=== PATIENT | female | born 1985 | race African-American/Black ===

== ENCOUNTER 2017-07-04 11:15 | Emergency (ER) | payer OTHER, SELFPAY ==
[2017-07-04] MEDS ORDERED: Ondansetron ODT 4 MG TAB ONE (11:37)
== END 2017-07-04 12:01 | disposition home or self-care (01) ==
LOC: BURERS 11:15
DX: K52.9 Noninfective gastroenteritis and colitis, unspecified (principal)
CPT/HCPCS: 96372; Q0162

== ENCOUNTER 2017-07-21 13:20 | Emergency (ER) | payer OTHER ==
[2017-07-21] MEDS ORDERED: Ketorolac Tromethamine 60 MG/2 ML VIAL ONE (13:35)
== END 2017-07-21 13:55 | disposition home or self-care (01) ==
LOC: BURERS 13:20
DX: J20.9 Acute bronchitis, unspecified (principal)
CPT/HCPCS: 96372; J1885

== ENCOUNTER 2017-08-07 13:18 | Emergency (ER) | payer OTHER ==
[2017-08-07 14:00] LABS: Hemoglobin 7.7 g/dL (12.0-16.0); Mean Corpuscular HGB CONC 28.3 g/dL (32.0-36.0); Mean Corpuscular Hemoglobin 18.6 pg (27.0-31.0); Mean Corpuscular Volume 65.8 fl (81.0-99.0); Mean Platelet Volume 7.4 fL (7.4-10.4); Platelet Count 316 thou/uL (130-400); RBC Distribution Width 18.1 % (11.5-14.5); Red Blood Cell (RBC) Count 4.12 mill/uL (4.20-5.40); White Blood Cell (WBC) Count 6.9 thou/uL (4.8-10.8)
[2017-08-07 14:08] LABS: BHCG - Serum Negative (NEGATIVE); Pregs Control Background? CLEAR/WHITE (CLR/WHITE); Pregs Control Bar Appear? YES (CONTROL BAR)
[2017-08-07 14:17] LABS: #Basophils 0.1 thou/uL (0.0-0.2); #Eosinphils 0.5 thou/uL (0.0-0.7); #Lymphocytes 2.5 thou/uL (1.20-3.40); #Monocytes 0.6 thou/uL (0.11-0.59); #Neutrophils 3.2 thou/uL (1.40-6.50); %Basophils 0.8 % (0.0-1.0); %Eosinophils 7.6 % (0.0-10.0); %Lymphocytes 35.7 % (21.0-51.0); %Monocytes 9.3 % (0.0-10.0); %Neutrophils 46.5 % (42.0-75.0); Basophilic Stippling SLIGHT = 1-2 cells (100X) (None Seen); Hypochromia MODERATE=16-30 cells (100X) (0-5/hpf); MDiff Complete? YES; Macrocytosis SLIGHT = 6-15 cells (100X) (0-5/hpf); Microcytosis MODERATE=15-30 cells (100X) (0-5/hpf); Polychromasia SLIGHT = 2-3 cells (100X) (0-2/hpf)
== END 2017-08-07 16:35 | disposition short-term general hospital (02) ==
LOC: BURERS 13:18
DX: N93.8 Other specified abnormal uterine and vaginal bleeding (principal); D64.9 Anemia, unspecified
CPT/HCPCS: 36415; 84703; 85025; 99284

== ENCOUNTER 2019-08-24 23:32 | Emergency (ER) | payer OTHER | END 2019-08-25 00:14 | disposition home or self-care (01) | LOC: BURERS 23:32 | DX: S06.0X0A Concussion without loss of consciousness, initial encounter (principal); S01.511A Laceration without foreign body of lip, initial encounter; Y04.2XXA Assault by strike against or bumped into by another person, initial encounter; Y92.219 Unspecified school as the place of occurrence of the external cause; Y99.0 Civilian activity done for income or pay | CPT/HCPCS: 99283 ==

== ENCOUNTER 2020-05-26 16:39 | Emergency (ER) | payer OTHER ==
[2020-05-26 17:43] LABS: #Basophils 0.1 thou/uL (0.0-0.2); #Eosinphils 0.2 thou/uL (0.0-0.7); #Lymphocytes 2.8 thou/uL (1.20-3.40); #Monocytes 0.6 thou/uL (0.11-0.59); #Neutrophils 2.3 thou/uL (1.40-6.50); %Basophils 0.9 % (0.0-1.0); %Eosinophils 3.2 % (0.0-10.0); %Monocytes 9.7 % (0.0-10.0); %Neutrophils 39.2 % (42.0-75.0); Hemoglobin 12.7 g/dL (12.0-16.0); Mean Corpuscular HGB CONC 30.8 g/dL (32.0-36.0); Mean Corpuscular Hemoglobin 26.9 pg (27.0-31.0); Mean Corpuscular Volume 87.1 fL (78.0-98.0); Mean Platelet Volume 9.8 fL (7.4-10.4); Platelet Count 258 thou/uL (130-400); RBC Distribution Width 12.6 % (11.5-14.5); Red Blood Cell (RBC) Count 4.71 mill/uL (4.20-5.40); White Blood Cell (WBC) Count 5.9 thou/uL (4.8-10.8)
[2020-05-26 17:50] LABS: Bilirubin Negative (Negative); Blood, Urine Negative (Negative); Clarity Cloudy (Clear); Glucose, Urine (Dipstick) Negative (Negative); Ketone, Urine Negative (Negative); Leukocyte Negative (Negative); Nitrite Negative (Negative); Protein, Urine (Dipstick) Negative (Neg-Trace); Specific Gravity, Urine 1.025 (1.005-1.030); pH, Urine 7.5 (5.0-9.0)
[2020-05-26 18:00] LABS: ALT (SGPT) 17 U/L (8-55); AST (SGOT) 12 U/L (5-34); Albumin 4.2 g/dL (3.5-5.0); Alkaline Phosphatase 111 U/L (40-110); Anion Gap 16 mmol/L (10-20); BUN (Urea Nitrogen) 7 mg/dL (7.0-18.7); Bilirubin, Total 0.3 mg/dL (0.2-1.2); Calc. Creatinine Clearance 0 mL/min (70-130); Calcium 9.6 mg/dL (7.8-10.44); Carbon Dioxide 25 mmol/L (22-29); Chloride 106 mmol/L (98-107); Globulin 4.1 g/dL (2.4-3.5); Glucose 116 mg/dL (70-105); Lipase 10 U/L (8-78); Potassium 3.9 mmol/L (3.5-5.1); Protein, Total 8.3 g/dL (6.0-8.3); Sodium 143 mmol/L (136-145)
--- NOTE | 2020-05-26 18:27 | RAD ---
PORTABLE CHEST: Date: 05-26-2020 An AP portable film at 1754 is compared with a 07-11-14 study. FINDINGS: The heart is normal in size and the lungs are clear. There is no acute infiltrate or effusion. The me diastinum appears normal and the trachea is midline. IMPRESSION: No acute thoracic finding. POS: HOME
== END 2020-05-26 18:32 | disposition home or self-care (01) ==
LOC: BURERS 16:39
DX: K80.20 Calculus of gallbladder without cholecystitis without obstruction (principal); M54.5 Low back pain
CPT/HCPCS: 36415; 71045; 80053; 81003; 83690; 84484; 85025; 93005

== ENCOUNTER 2020-08-05 12:12 | Emergency (ER) | payer OTHER ==
[2020-08-05] MEDS ORDERED: Metoclopramide HCl 10 MG/2 ML VIAL ONE (13:27)
[2020-08-05] MEDS ORDERED: methylPREDNISolone Sod Succ/PF 125 MG/2 ML VIAL ONE (13:28)
[2020-08-05] MEDS ORDERED: diphenhydrAMINE 50 MG/ML VIAL ONE (13:28)
[2020-08-05 13:44] LABS: #Eosinphils 0.2 thou/uL (0.0-0.7); #Lymphocytes 1.3 thou/uL (1.20-3.40); #Monocytes 0.5 thou/uL (0.11-0.59); #Neutrophils 2.4 thou/uL (1.40-6.50); %Eosinophils 4.9 % (0.0-10.0); %Lymphocytes 29.4 % (21.0-51.0); %Monocytes 11.6 % (0.0-10.0); %Neutrophils 53.1 % (42.0-75.0); Mean Corpuscular Volume 87.2 fL (78.0-98.0); Platelet Count 236 thou/uL (130-400); RBC Distribution Width 12.9 % (11.5-14.5); Red Blood Cell (RBC) Count 4.82 mill/uL (4.20-5.40); White Blood Cell (WBC) Count 4.6 thou/uL (4.8-10.8)
[2020-08-05] MEDS ORDERED: Morphine 10 MG/ML VIAL ONE (13:58)
[2020-08-05 13:59] LABS: ALT (SGPT) 21 U/L (8-55); AST (SGOT) 18 U/L (5-34); Albumin 4.3 g/dL (3.5-5.0); Alkaline Phosphatase 99 U/L (40-110); Anion Gap 13 mmol/L (10-20); BUN (Urea Nitrogen) 8 mg/dL (7.0-18.7); Bilirubin, Total 0.5 mg/dL (0.2-1.2); Calc. Creatinine Clearance 0 mL/min (70-130); Calcium 9.6 mg/dL (7.8-10.44); Carbon Dioxide 27 mmol/L (22-29); Chloride 107 mmol/L (98-107); Glucose 90 mg/dL (70-105); Potassium 3.7 mmol/L (3.5-5.1); Protein, Total 8.3 g/dL (6.0-8.3); Sodium 143 mmol/L (136-145)
[2020-08-05 14:00] LABS: BHCG - Serum Negative (NEGATIVE); Pregs Control Background? CLEAR/WHITE (CLR/WHITE); Pregs Control Bar Appear? YES (CONTROL BAR)
--- NOTE | 2020-08-05 16:01 | CT ---
CT OF THE BRAIN WITHOUT CONTRAST: 08/05/[address] was done for evaluation of headache. The ventricles are normal in size with no shift . No intracranial bleeding, mass or edema was found. There is no sign of acute stroke. The skull is n ormal in appearance. There is a trace of mucosal thickening in the left maxillary sinus. IMPRESSION: No acute intracranial findings. Preliminary report called to Kaylynn in ER at 1527 on 08/05/20. POS: HOME
--- NOTE | 2020-08-05 16:19 | RAD ---
PORTABLE CHEST: 08/05/20 An AP portable film at 1346 is compared with an 05/26/20 study. The heart remains normal in size and the lungs are clear. No acute infiltrate or effusion was seen. There is no vascular congestion or padmini ma. IMPRESSION: No acute thoracic finding. POS: HOME
[2020-08-06 07:46] LABS: SARS-CoV-2 PCR by NAA Not Detected (NotDetected)
== END 2020-08-05 16:03 | disposition home or self-care (01) ==
LOC: BURERS 12:12
DX: R05 Cough (principal); R51.9 Headache, unspecified; R09.81 Nasal congestion; Z20.822 Contact with and (suspected) exposure to COVID-19; I10 Essential (primary) hypertension
CPT/HCPCS: 36415; 70450; 71045; 80053; 84703; 85025; 87635; 96374; 96375; J1200; J2270; J2765; J2930; U0003; U0005

== ENCOUNTER 2021-04-24 13:17 | Emergency (ER) | payer SELFPAY ==
[2021-04-24] MEDS ORDERED: cloNIDine 0.1 MG TAB ONE (14:16)
[2021-04-24 14:18] LABS: #Eosinphils 0.1 thou/uL (0.0-0.7); #Lymphocytes 1.7 thou/uL (1.20-3.40); #Monocytes 0.4 thou/uL (0.11-0.59); #Neutrophils 2.3 thou/uL (1.40-6.50); %Basophils 0.7 % (0.0-1.0); %Eosinophils 1.7 % (0.0-10.0); %Lymphocytes 37.3 % (21.0-51.0); %Monocytes 8.9 % (0.0-10.0); %Neutrophils 51.4 % (42.0-75.0); Hemoglobin 12.8 g/dL (12.0-16.0); Mean Corpuscular HGB CONC 30.9 g/dL (32.0-36.0); Mean Corpuscular Hemoglobin 27.2 pg (27.0-31.0); Mean Corpuscular Volume 87.9 fL (78.0-98.0); Platelet Count 298 thou/uL (130-400); RBC Distribution Width 12.7 % (11.5-14.5); White Blood Cell (WBC) Count 4.5 thou/uL (4.8-10.8)
[2021-04-24 14:35] LABS: ALT (SGPT) 12 U/L (8-55); AST (SGOT) 14 U/L (5-34); Albumin 4.3 g/dL (3.5-5.0); Alkaline Phosphatase 113 U/L (40-110); Anion Gap 15 mmol/L (10-20); BUN (Urea Nitrogen) 12 mg/dL (7.0-18.7); Bilirubin, Total 0.7 mg/dL (0.2-1.2); Calc. Creatinine Clearance 0 mL/min (70-130); Calcium 9.8 mg/dL (7.8-10.44); Carbon Dioxide 25 mmol/L (22-29); Chloride 106 mmol/L (98-107); Globulin 4.3 g/dL (2.4-3.5); Glucose 93 mg/dL (70-105); Potassium 3.8 mmol/L (3.5-5.1); Protein, Total 8.6 g/dL (6.0-8.3); Sodium 142 mmol/L (136-145)
[2021-04-24] MEDS ORDERED: Metoclopramide HCl 10 MG TAB ONE (15:54)
[2021-04-24] MEDS ORDERED: diphenhydrAMINE 25 MG CAP ONE (15:54)
[2021-04-24] MEDS ORDERED: traMADol HCl 50 MG TAB ONE (16:37)
== END 2021-04-24 16:43 | disposition home or self-care (01) ==
LOC: BURERS 13:17
DX: I10 Essential (primary) hypertension (principal); R51.9 Headache, unspecified
CPT/HCPCS: 36415; 70450; 80053; 84443; 85025

== ENCOUNTER 2021-06-20 08:51 | Emergency (ER) | payer OTHER, SELFPAY ==
[2021-06-20] MEDS ORDERED: Ibuprofen 800 MG TAB ONE (09:29)
== END 2021-06-20 09:35 | disposition home or self-care (01) ==
LOC: BURERS 08:51
DX: S29.012A Strain of muscle and tendon of back wall of thorax, initial encounter (principal); M94.0 Chondrocostal junction syndrome [Tietze]; I10 Essential (primary) hypertension; Z79.899 Other long term (current) drug therapy; V43.62XA Car passenger injured in collision with other type car in traffic accident, initial encounter
CPT/HCPCS: 99283

== ENCOUNTER 2023-03-23 07:41 | Emergency (ER) | payer BC ==
[2023-03-23] MEDS ORDERED: Ipratropium/Albuterol 3 ML NEB ONE (08:41)
[2023-03-23] MEDS ORDERED: predniSONE 20 MG TAB ONE (08:54)
== END 2023-03-23 09:04 | disposition home or self-care (01) ==
LOC: BURERS 07:41
DX: J22 Unspecified acute lower respiratory infection (principal); I10 Essential (primary) hypertension; Z79.899 Other long term (current) drug therapy
CPT/HCPCS: 71045; J7512; J7620

== ENCOUNTER 2023-11-06 08:13 | Emergency (ER) | payer BC ==
[2023-11-06] MEDS ORDERED: Benzonatate 100 MG CAP ONE (08:26)
== END 2023-11-06 08:51 | disposition home or self-care (01) ==
LOC: BURERS 08:13
DX: J06.9 Acute upper respiratory infection, unspecified (principal); I10 Essential (primary) hypertension
CPT/HCPCS: 71046

== ENCOUNTER 2023-12-17 10:55 | Emergency (ER) | payer BC ==
[2023-12-17] MEDS ORDERED: Prochlorperazine 10 MG/2 ML VIAL ONE (12:35)
[2023-12-17] MEDS ORDERED: cloNIDine 0.1 MG TAB ONE (12:35)
[2023-12-17] MEDS ORDERED: diphenhydrAMINE 50 MG/ML VIAL ONE (12:35)
[2023-12-17] MEDS ORDERED: Ketorolac Tromethamine 30 MG (1 mL) VIAL ONE (12:35)
== END 2023-12-17 14:14 | disposition home or self-care (01) ==
LOC: BURERS 10:55
DX: I10 Essential (primary) hypertension (principal)
CPT/HCPCS: 96374; 96375; J0780; J1200; J1885

== ENCOUNTER 2024-04-27 11:58 | Emergency (ER) | payer BC ==
[2024-04-27] MEDS ORDERED: Ipratropium/Albuterol 3 ML NEB ONE (12:17)
== END 2024-04-27 12:35 | disposition home or self-care (01) ==
LOC: BURERS 11:58
DX: J06.9 Acute upper respiratory infection, unspecified (principal); R06.2 Wheezing; I10 Essential (primary) hypertension
CPT/HCPCS: 99283; J7620

== ENCOUNTER 2024-05-20 13:01 | Emergency (ER) | payer BC | END 2024-05-20 14:03 | disposition home or self-care (01) | LOC: BURERS 13:01 | DX: R05.1 Acute cough (principal); I10 Essential (primary) hypertension | CPT/HCPCS: 71046 ==

== ENCOUNTER 2024-06-10 12:33 | Emergency (ER) | payer BC ==
[2024-06-10] MEDS ORDERED: Ketorolac Tromethamine 30 MG (1 mL) VIAL ONE (13:07)
[2024-06-10] MEDS ORDERED: Dexamethasone 10 MG/ML VIAL ONE (13:07)
== END 2024-06-10 13:30 | disposition home or self-care (01) ==
LOC: BURERS 12:33
DX: J04.0 Acute laryngitis (principal); K12.2 Cellulitis and abscess of mouth; I10 Essential (primary) hypertension
CPT/HCPCS: 87081; 87430; 96372; 99283; J1100; J1885